=== PATIENT | female | born 2005 | race Two or more races ===

== ENCOUNTER 2024-12-08 00:26 | Emergency (ER) | payer MEDICAID, SELFPAY ==
[2024-12-08 00:27] VITALS: BMI 28.3
[2024-12-08 01:04] VITALS: BP 114/72; PULSE 99; RESP 16; TEMP 36.8; O2SAT 100
--- NOTE | 2024-12-08 01:40 | XR_ITS ---
Examination: Transvaginal ultrasound of the pelvis, complete Technique: Transvaginal sonographic images pelvis performed using hodges scale imaging Date and time: December 08, 2024, 0230 hours Indications: Intermittent pelvic pain beginning 2 years ago. FINDINGS: Uterus 6.8 cm endometrial stripe on 6:00 AM No uterine mass or intrauterine gestation Right ovary 2.6 cm low Left ovary 4.5 cm arterial flow, 3.0 x 2.1 x 3.3 cm cyst with internal echoes, consider hemorrhagic cyst IMPRESSION: Left ovarian 3.0 x 2.1 x 3.3 cm complex cyst, consider hemorrhagic cyst, suggest 3 month follow up pelvic sonography
--- NOTE | 2024-12-08 03:26 | EDNOTE_ITS ---
ED Female Urogenital RME/HPI General Chief complaint: Abdominal Pain Stated complaint: LEFT ABD AREA PAIN Time Seen by Provider: 12/08/24 01:39 Arrival date/time: 12/08/24 00:26 19F with no significant PMH presents to ED with 2 years of intermittent L pelvic pain. This time, it was pretty strong. Patient denies N/V, diarrhea, dysuria, and vaginal bleeding. Patient had unremarkable US 1 year ago. Patient states pain episodes are random and not tied to her cycles. Limitations: no limitations Related Data Previous Rx's ?Medication ?Instructions ?Recorded ibuprofen 600 mg tablet 1 tab PO Q8HR PRN FEVER > 10 1 #14 10/20/16 tabs ibuprofen 400 mg tablet 400 mg PO Q6H PRN fever or p ain 01/24/19 #30 tabs Allergies Allergy/AdvReac Type Severity Reaction Status Date / Time No Known Allergies Allergy Verified 12/08/24 00:27 Review of Systems Review of Systems Systems Reviewed: All systems reviewed, normal except as documented Constitutional Constitutional: Reports system reviewed and no additional complaints, except as documented, Denies fever(s) and Denies headache(s) ENT Ears, Nose, Mouth, and Throat: Denies disequilibrium and Denies headache(s) Cardiovascular Cardiovascular: Reports system reviewed and no additional complaints, except as documented, Denies chest pain and Denies dyspnea Respiratory Respiratory: Reports system reviewed and no additional complaints, except as documented, Denies cough and Denies dyspnea Gastrointestinal Gastrointestinal: Reports system reviewed and no additional complaints, except as documented, Denies abdominal pain, Denies nausea and Denies vomiting Genitourinary Genitourinary: Reports as per HPI and Reports pelvic pain Neurologic Neurologic: Reports system reviewed and no additional complaints, except as documented, Denies confusion, Denies disequilibrium and Denies headache(s) Psychiatric Psychiatric: Denies confusion Past Medical History Social History SMOKING STATUS: Never smoker ED Exam General Limitations: Present no limitations General appearance: Present alert and in no apparent distress Head Head exam: Present atraumatic Eye Eye exam: Present normal appearance, PERRL and EOMI ENT ENT exam: Present normal exam, normal oropharynx and mucous membranes moist Neck Neck exam: Present normal inspection, full ROM and trachea midline Chest Chest inspection: Present normal inspection and symmetric chest wall rise Respiratory Respiratory exam: Present normal lung sounds bilaterally Cardiovascular Cardiovascular exam: Present regular rate, normal rhythm and normal heart sounds Abdominal Exam Abdominal exam: Present soft and normal bowel sounds Extremities Exam Extremities exam: Present normal inspection and full ROM Back Exam Back exam: Present normal inspection and full ROM Neurological Exam Neurological exam: Present alert, oriented X3 and CN II-XII intact Psychiatric Psychiatric exam: Present normal affect and normal mood Skin Skin exam: Present warm, dry, intact and normal color Course Quality Measures none Orders Category Date Time Status US transvaginal Stat Exams 12/08/24 01:40 Taken Vital Signs Vital signs: Vital Signs Temperature 98.2 F 12/08/24 01:04 Pulse Rate 99 12/08/24 01:04 Respiratory Rate 16 12/08/24 01:04 Blood Pressure 114/72 12/08/24 01:04 Pulse Oximetry (%) 100 12/08/24 01:04 Oxygen Delivery Method Room Air 12/08/24 01:04 O2 at 100% on RA and WNLs Urogenital - Female MDM Narrative MDM Narrative:: 19F with no significant PMH presents to ED with 2 years of intermittent L pelvic pain. This time, it was pretty strong. Patient denies N/V, diarrhea, dysuria, and vaginal bleeding. Patient had unremarkable US 1 year ago. Patient states pain episodes are random and not tied to her cycles. Physical exam reveals no ab tenderness. No obvious hernia. Patient is afebrile, calm, and alert. US Telerad report reveals mildly complex 3 cm cyst on L ovary. Resolution Analyst given. Patient data External records reviewed:: [facility] previous records Clinical information provided by:: patient Social determinants that could affect healthcare access:: none Patient has the following chronic illnesses:: none How is presenting disease/condition affected by chronic disease/condition?: no chronic disease Evaluation data The following diagnostics were reviewed and interpreted by me:: radiology exam(s) Lab and/or radiology exams considered but not ordered:: ordered Interpretation Summary: above Medications / Prescriptions Medications or Prescriptions considered but not ordered:: not ordered Medication administrations:: n/a Consultations Consultation(s) initiated? (list below): No Diagnosis Urogenital Female Differential Diagnosis: urinary tract infection, bacterial vaginosis, trichomoniasis, cervicitis, ovarian cyst, vaginitis, ruptured ovarian cyst, cyst of Bartholin's gland, cystitis and dysmenorrhea Most likely diagnosis given after review of the tests above:: ovarian cyst Admission Indicated Admission indicated?: not indicated Admission Request Was there a request for admission?: No Disposition Plan Disposition Plan: Discharge Discharge Attestation Discharge Attestation: The patient and all family members were given an opportunity to ask questions and understood the discharge instructions. Discharge instructions specifically effects, indications for sooner follow up or return to the emergency department, and the expected course of current diagnosis. Patient condition: Stable Discharge Plan Plan Patient Disposition: HOME (Self Care) Discharge Disposition comment: Stable Prescriptions/Referrals Prescriptions/Med Rec: No Action ibuprofen 600 MG tablet 1 tab PO Q8HR PRN (Reason: FEVER > 101) Qty: 14 0RF ibuprofen 400 mg tablet 400 mg PO Q6H PRN (Reason: fever or pain) Qty: 30 0RF Referrals: Sundeep Aguilar MD [Primary Care Provider] - In 1 week Problem List Clinical Impression: Ovarian cyst Patient/Caregiver Discharge Instructions Education Materials: ED Ovarian Cyst Additional Instructions: Please follow-up with PCP/OBGYN within 24-48 hours and return immediately if symptoms worsen. Print Language: Nepalese Stand Alone Forms: Patient Portal Info Letter PEDRO LUIS/YONAS Supervising Physician PEDRO LUIS/YONAS Supervising Physician: Dr. Tolentino
--- NOTE | 2024-12-08 03:53 | PRELIM_ITS ---
Pelvic ultrasound (transvaginal) with Doppler and wave Doppler spectral analysis. December 08, 2024 0230 hours Clinical history: Left pelvic pain, no bleeding, not . Technique: Real-time, grayscale, transvaginal pelvic ultrasound was performed using Duplex scanning including arterial inflow, venous outflow, color and spectral Doppler. Comparison: None. Findings: The uterus is normal in size measuring 6.8 x 4.4 x 4.7 cm. The endometrium is unremarkable and measures 0.6 cm. The right ovary measures 2.6 x 1.6 x 1.6 cm and is unremarkable. The left ovary measures 4.6 x 2.1 x 4.1 cm, mildly complex cystic lesion measuring 3.0 x 2.1 x 3.3 cm. Both ovaries demonstrate color flow and spectral waveforms on Doppler evaluation. There is no adnexal mass. There is no free fluid on the submitted images. Impression: No evidence of ovarian torsion. Mildly complex left ovarian cystic lesion, consider short-term follow-up in 3 months with ultrasound or correlation with MRI. Please, correlate clinically. Report Electronically Signed By: Juan Joshua 12/08/2024 3:52:22 AM [EST]
== END 2024-12-08 03:54 | disposition home or self-care (01) ==
PROVIDERS: Emergency Provider Emergency Medicine; PCP Family Medicine
DX: N83.202 Unspecified ovarian cyst, left side (principal)
CPT/HCPCS: 76830; 99283